=== PATIENT | female | born 1950 | race Caucasian/White ===

== ENCOUNTER 2017-01-23 14:59 | Inpatient (IN) | payer MEDICARE, OTHER ==
[~2017-01-23] VITALS: Ht 160 cm; Wt 70.4 kg
[2017-01-23 15:00] VITALS: BP 146/66; PULSE 68; RESP 18; TEMP 98.6; O2SAT 100
--- NOTE | 2017-01-23 16:51 | PD ---
HPI Chief Complaint: Psychiatric Symptoms Time Seen by Provider: 16:35 Travel History International Travel<30 days: No Contact w/Intl Traveler<30days: No Traveled to known affect area: No History of Present Illness HPI This is a 66-year-old female who presents voluntarily for psychiatric evaluation. Reportedly the patient has a recent diagnosis of frontotemporal dementia as well as depression. Her in November and since then she has been isolating herself. According to the nurse's spoke to the patient' s daughter she has been locking herself in her room and has had a decreased appetite, eating and drinking less than usual. She is currently seeing a psychiatrist but symptoms have been worsening which prompted evaluation today. Upon examination of the patient she is quite tearful when speaking of her , she reports that she misses him quite a bit and does endorse grieving. When asked about her social isolation and decreased appetite she says "that is their opinion." She denies any suicidal or homicidal ideation. She has no medical complaints at this time. [facility] Past Medical History Narrative Medical Frontotemporal dementia, depression Social History Alcohol Use: No Tobacco Use: No Allergies-Medications (Allergen,Severity, Reaction): Coded Allergies: Novocain (Verified Allergy, Severe, UNKNOWN, 01/23/17) Penicillin (Verified Allergy, Severe, UNKNOWN, 01/23/17) Review of Systems Except as stated in HPI: all other systems reviewed are Neg Physical Exam Narrative GENERAL: Well-developed well-nourished female in no acute distress. SKIN: Warm and dry. HEAD: Atraumatic. Normocephalic. EYES: Pupils equal and round. No scleral icterus. No injection or drainage. ENT: No nasal bleeding or discharge. Mucous membranes pink and moist. NECK: Trachea midline. No JVD. CARDIOVASCULAR: Regular rate and rhythm. No murmur appreciated. RESPIRATORY: No accessory muscle use. Clear to auscultation. Breath sounds equal bilaterally. GASTROINTESTINAL: Abdomen soft, non-tender, nondistended. Hepatic and splenic margins not palpable. MUSCULOSKELETAL: No obvious deformities. No edema. NEUROLOGICAL: Awake and alert. No obvious cranial nerve deficits. Motor grossly within normal limits. Normal speech. PSYCHIATRIC: Depressed mood, tearful. Insight is limited. Data Data Last Documented VS Vital Signs Date Time Temp Pulse Resp B/P Pulse Ox O2 Delivery O2 Flow Rate FiO2 7/4/17 15:00 98.6 68 18 146/66 100 Room Air Orders Complete Blood Count With Diff (01/23/17 16:30) Comprehensive Metabolic Panel (01/23/17 16:30) Urinalysis - C+S If Indicated (01/23/17 16:30) Psych Screen (01/23/17 16:30) Drug Screen, Random Urine (01/23/17 16:30) Alcohol (Ethanol) (01/23/17 16:30) Diet Regular Basic (01/23/17 Dinner) Labs Laboratory Tests Test 01/23/17 01/23/17 01/23/17 16:46 16:54 17:42 White Blood Count 7.7 TH/MM3 Red Blood Count 4.39 MIL/MM3 Hemoglobin 13.6 GM/DL Hematocrit 39.1 % Mean Corpuscular Volume 89.2 FL Mean Corpuscular Hemoglobin 31.1 PG Mean Corpuscular Hemoglobin 34.8 % Concent Red Cell Distribution Width 13.4 % Platelet Count 235 TH/MM3 Mean Platelet Volume 8.6 FL Neutrophils (%) (Auto) 56.2 % Lymphocytes (%) (Auto) 31.9 % Monocytes (%) (Auto) 9.9 % Eosinophils (%) (Auto) 1.3 % Basophils (%) (Auto) 0.7 % Neutrophils # (Auto) 4.3 TH/MM3 Lymphocytes # (Auto) 2.5 TH/MM3 Monocytes # (Auto) 0.8 TH/MM3 Eosinophils # (Auto) 0.1 TH/MM3 Basophils # (Auto) 0.1 TH/MM3 CBC Comment DIFF FINAL Differential Comment Sodium Level 138 MEQ/L Potassium Level 4.2 MEQ/L Chloride Level 100 MEQ/L Carbon Dioxide Level 32.3 MEQ/L Anion Gap 6 MEQ/L Blood Urea Nitrogen 16 MG/DL Creatinine 0.83 MG/DL Estimat Glomerular Filtration 69 ML/MIN Rate Random Glucose 90 MG/DL Calcium Level 9.9 MG/DL Total Bilirubin 0.6 MG/DL Aspartate Amino Transf 26 U/L (AST/SGOT) Alanine Aminotransferase 32 U/L (ALT/SGPT) Alkaline Phosphatase 80 U/L Total Protein 9.0 GM/DL Albumin 4.0 GM/DL Ethyl Alcohol Level LESS THAN 3 MG/DL Urine Color YELLOW Urine Turbidity CLEAR Urine pH 6.5 Urine Specific [place] 1.023 Urine Protein TRACE mg/dL Urine Glucose (UA) NEG mg/dL Urine Ketones NEG mg/dL Urine Occult Blood NEG Urine Nitrite NEG Urine Bilirubin NEG Urine Urobilinogen LESS THAN 2.0 MG/DL Urine Leukocyte Esterase SMALL Urine RBC 1 /hpf Urine WBC 6 /hpf Urine Squamous Epithelial <1 /hpf Cells Urine Mucus FEW /lpf Microscopic Urinalysis Comment CULT NOT INDICATED MDM Medical Decision Making Medical Screen Exam Complete: Yes Emergency Medical Condition: Yes Medical Record Reviewed: Yes Interpretation(s) CBC unremarkable CMP essentially unremarkable Alcohol level within normal limits Urinalysis reveals small leukocytes otherwise unremarkable Differential Diagnosis Grieving, adjustment reaction, dementia, major depressive disorder, depressive disorder not otherwise specified, acute psychosis Narrative Course 66-year-old female whose in November, has been grieving, recent diagnosis of depression and frontotemporal dementia, presents for evaluation of increased social isolation and decreased activities of daily living. Mental health screening discussed with the patient. Psychiatric screen ordered. The patient's lab work has been reviewed and found to be essentially unremarkable. She is medically cleared for psychiatric disposition. Diagnosis Primary Impression: Depression Qualified Code: F32.9 - Depression, unspecified depression type Gian Mann Jan 23, 2017 16:50
[2017-01-23 17:13] LABS: AUTOMATED NEUTROPHIL # 4.3 TH/MM3 (1.8-7.7); BASOPHIL # 0.1 TH/MM3 (0-0.2); BASOPHIL % 0.7 % (0.0-2.0); EOSINOPHIL # 0.1 TH/MM3 (0-0.4); EOSINOPHIL % 1.3 % (0.0-4.0); HEMATOCRIT 39.1 % (35.0-46.0); HEMO FLAGS DIFF FINAL; LYMPH % 31.9 % (9.0-44.0); LYMPHOCYTE # 2.5 TH/MM3 (1.0-4.8); MEAN CELL VOLUME 89.2 FL (80.0-100.0); MEAN CORPUSCULAR HEMOGLOBIN 31.1 PG (27.0-34.0); MEAN CORPUSCULAR HGB CONC 34.8 % (32.0-36.0); MONO % 9.9 % (0.0-8.0); NEUT % 56.2 % (16.0-70.0); PLATELET COUNT 235 TH/MM3 (150-450); RED BLOOD COUNT 4.39 MIL/MM3 (4.00-5.30); RED CELL DISTRIBUTION WIDTH 13.4 % (11.6-17.2); WHITE BLOOD COUNT 7.7 TH/MM3 (4.0-11.0)
[2017-01-23 17:33] LABS: ANION GAP 6 MEQ/L (5-15); AST (GOT) 26 U/L (15-37); BICARBONATE 32.3 MEQ/L (21.0-32.0); BLOOD UREA NITROGEN 16 MG/DL (7-18); CHLORIDE 100 MEQ/L (98-107); GLOMERULAR FILTRATION RATE 69 ML/MIN (>89); POTASSIUM 4.2 MEQ/L (3.5-5.1); SODIUM (NA) 138 MEQ/L (136-145)
[2017-01-23 17:37] LABS: ALKALINE PHOSPHATASE 80 U/L (45-117); ALT (GPT) 32 U/L (10-53); TOTAL BILIRUBIN ADULT 0.6 MG/DL (0.2-1.0)
[2017-01-23 18:17] LABS: BLOOD, URINE NEG (NEG); COMMENT (UR) CULT NOT INDICATED; CULTURE IF INDICATED CULT NOT INDICATED; GLUCOSE,URINE NEG (NEG); KETONE, URINE NEG (NEG); MUCUS URINE FEW /lpf (OCC); NITRITE,URINE NEG (NEG); PH, URINE 6.5 (5.0-8.5); SQUAMOUS EPITHELIAL CELL URINE <1 /hpf (0-5); URINE COLOR YELLOW (YELLW/STRAW)
[2017-01-23 18:18] LABS: AMPHETAMINE, URINE NEG (NEG); BARBITURATES, URINE NEG (NEG); COCAINE, URINE NEG (NEG)
[2017-01-23 18:44] VITALS: BP 135/73; PULSE 58; RESP 16; O2SAT 100
[2017-01-23] MEDS ORDERED: NAME10TA PO (21:44)
[2017-01-23] MEDS ORDERED: CELE10TA PO (21:44)
[2017-01-23] MEDS ORDERED: HYDR50TA3 PO (21:44)
[2017-01-23] MEDS ORDERED: ATOR40TA16 PO (21:44)
[2017-01-23] MEDS ORDERED: NAME5TAB2 PO (21:44)
[2017-01-23] MEDS ORDERED: LISI-519 PO (21:44)
[2017-01-23 22:11] VITALS: BP 107/59; PULSE 50; RESP 17; TEMP 98.2; O2SAT 98
[2017-01-23] MEDS ORDERED: LORazepam 0.5 MG TAB age > 65 yrs PO PRN (23:30)
[2017-01-23] MEDS ORDERED: LORazepam 2 MG/ML VIAL - age > 65 yrs IM PRN (23:30)
[2017-01-23] MEDS ORDERED: diphenhydrAMINE HCL 50 MG CAP PO PRN (23:30)
[2017-01-23] MEDS ORDERED: diphenhydrAMINE HCL 50 MG/ML VIAL - HS PRN IM (23:30)
[2017-01-23] MEDS ORDERED: ACETAMINOPHEN 325 MG TAB PO PRN (23:30)
[2017-01-23] MEDS ORDERED: diphenhydrAMINE HCL 50 MG/ML VIAL IM PRN (23:30)
[2017-01-23] MEDS ORDERED: MAGNESIUM HYDROXIDE SUSP 30 ML CUP PO PRN (23:30)
[2017-01-23] MEDS ORDERED: ALUMINUM/MAGNESIUM/SIMETH 30 ML CUP PO PRN (23:30)
[2017-01-24] VITALS: BP 128/60; PULSE 52; RESP 18; TEMP 97.7; O2SAT 100
[2017-01-24 04:56] VITALS: BP 96/53; PULSE 53; RESP 16; TEMP 97.4; O2SAT 98
[2017-01-24] MEDS: HYDROCHLOROTHIAZIDE 50 MG TAB PO SCH (09:00)
[2017-01-24] MEDS: LISINOPRIL 5 MG TAB PO SCH (09:00)
[2017-01-24] MEDS: NICOTINE 21 MG/24 HR PATCH T-DERMAL SCH (09:00)
[2017-01-24 10:25] LABS: AUTOMATED NEUTROPHIL # 2.9 TH/MM3 (1.8-7.7); BASOPHIL % 0.7 % (0.0-2.0); EOSINOPHIL # 0.1 TH/MM3 (0-0.4); EOSINOPHIL % 2.3 % (0.0-4.0); HEMATOCRIT 39.8 % (35.0-46.0); HEMO FLAGS DIFF FINAL; LYMPH % 36.1 % (9.0-44.0); MEAN CELL VOLUME 90.3 FL (80.0-100.0); MEAN CORPUSCULAR HEMOGLOBIN 30.4 PG (27.0-34.0); MEAN CORPUSCULAR HGB CONC 33.7 % (32.0-36.0); MONO % 9.4 % (0.0-8.0); NEUT % 51.5 % (16.0-70.0); PLATELET COUNT 240 TH/MM3 (150-450); RED BLOOD COUNT 4.41 MIL/MM3 (4.00-5.30); RED CELL DISTRIBUTION WIDTH 13.4 % (11.6-17.2); WHITE BLOOD COUNT 5.6 TH/MM3 (4.0-11.0)
[2017-01-24 10:43] LABS: ANION GAP 8 MEQ/L (5-15); BICARBONATE 29.7 MEQ/L (21.0-32.0); BLOOD UREA NITROGEN 12 MG/DL (7-18); CHLORIDE 99 MEQ/L (98-107); GLOMERULAR FILTRATION RATE 90 ML/MIN (>89); POTASSIUM 3.8 MEQ/L (3.5-5.1); SODIUM (NA) 137 MEQ/L (136-145)
[2017-01-24 10:46] LABS: HDL CHOLESTEROL 60.1 MG/DL (40.0-60.0); LDL CHOLESTEROL 106 MG/DL (0-99)
--- NOTE | 2017-01-24 11:34 | HHI.HP ---
Provisional Diagnosis Admission Date Jan 23, 2017 at 23:11 [place]. Dementia with behavioral disturbance Certification of Person's Competence To Provide Express and Informed Consent I have personally examined Magnolia Camacho , a person being served at [facility] on, Jan 24, 2017 11:25. Express and informed consent means consent voluntarily given in writing, by a competent person, after sufficient explanation and disclosure of the subject matter involved to enable the person to make a knowing and willful decision without any element of force, fraud, deceit, duress, or other form of constraint or coercion. This person is 18 years of age or older, is not now known to be incompetent to consent to treatment with a guardian advocate, and does not have a health care surrogate or proxy currently making medical treatment decisions. I have found this person to be one of the following: [x] Competent to provide express and informed consent, as defined above, for voluntary admission to this facility and is competent to provide express and informed consent for treatment. He/she has the consistent capacity to make well reasoned, willful, and knowing decisions concerning his or her medical or mental health treatment. The person fully and consistently understands the purpose of the admission for examination/placement and is fully capable of personally exercising all rights assured under [place] Incompetent to provide express and informed consent to voluntary admission, and this is incompetent to provide express and informed consent to treatment. The person must be transferred to involuntary status and a petition for a guardian advocate filed with the Circuit Court. [] Refusing to provide express and informed consent to voluntary admission but is competent to provide express and informed consent for treatment. The person must be discharged or transferred to involuntary status. Form shall be completed within 24 hours of a person's arrival at the receiving facility and filed in the clinical record of each person: 1. Admitted on a voluntary basis 2. Permitted to provide express and informed consent to his/her own treatment 3. Allowed to transfer from involuntary to voluntary status 4. Prior to permitting a person to consent to his or her own treatment after having been previously found incompetent to consent to treatment. History of Present Illness Capacity: Has Capacity HPI 66-year-old female reportedly admitted for failure to care for self, not eating , not drinking, locking herself in her room, etc. Patient reportedly lost her in November of this year. Since that time she has been grieving his loss and experiencing symptoms of depressed mood, anhedonia, diminished energy, decreased motivation, feelings of hopelessness and helplessness, social withdrawal, decreased concentration and memory, insomnia and loss of appetite. She has been reportedly not suicidal or homicidal or psychotic. 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 She does not drink alcohol or use illicit drugs. She has been seen by a physician at [facility] and her antidepressants were changed. Prior to that she was being treated by her family physician. Review of Systems Except as stated in HPI: all other systems reviewed are Neg Past Psych History Psychological trauma history Denied for trauma or inpatient psychiatric hospitalization. Chronic depression. Violence risk - others (6 mos) Minimal Violence risk - self (6 mos) Moderate Substance Abuse History Drugs/Alcohol past 12 months Denied Past Family Social History Coded Allergies: Novocain (Verified Allergy, Severe, UNKNOWN, 01/23/17) Penicillin (Verified Allergy, Severe, UNKNOWN, 01/23/17) Reported Medications Citalopram (Celexa)10 Mg Tab10 Mg PO DAILY #30 TAB Ref 0 01/23/17 Atorvastatin 40 Mg Tab40 Mg PO HS #30 TAB Ref 0 01/23/17 Hydrochlorothiazide 50 Mg Tab50 Mg PO DAILY #60 TAB Ref 0 01/23/17 Lisinopril 5 Mg Tab5 Mg PO DAILY #30 TAB Ref 0 01/23/17 Memantine (Namenda)10 Mg Tab10 Mg PO DAILY #30 TAB Ref 0 01/23/17 Memantine (Namenda)5 Mg Tab5 Mg PO DAILY 14 Days Ref 1 01/23/17 Current Medications Medications (Trade) Dose Ordered Sig/Bucky Route Start Time Stop Time Status Last Admin (Ativan) 0.5 mg Q12H PRN PO 01/23/17 23:30 (Ativan Inj) 0.5 mg Q12H PRN IM 01/23/17 23:30 (Atarax) 50 mg Q6H PRN PO 01/23/17 23:30 (Benadryl) 50 mg Q6H PRN PO 01/23/17 23:30 (Benadryl Inj) 50 mg Q6H PRN IM 01/23/17 23:30 (Benadryl) 50 mg HS PRN PO 01/23/17 23:30 (Benadryl Inj) 50 mg HS PRN IM 01/23/17 23:30 (Desyrel) 50 mg HS PRN PO 01/23/17 23:30 (Tylenol) 650 mg Q4H PRN PO 01/23/17 23:30 (Milk Of Magnesia Liq) 30 ml DAILY PRN PO 01/23/17 23:30 (Mag-Al Plus Susp Liq) 30 ml Q6H PRN PO 01/23/17 23:30 (Habitrol 21 Mg Patch.24 Hr) 1 patch DAILY T-DERMAL 01/24/17 09:00 Miscellaneous Information 1 HS T-DERMAL 01/24/17 21:00 (Lipitor) 40 mg HS PO 01/24/17 21:00 (Prinivil) 5 mg DAILY PO 01/24/17 09:00 (Hydrodiuril) 50 mg DAILY PO 01/24/17 09:00 Family History Positive for anxiety and mood disorders. Social History Retired. Lost 2 months ago. Does not drink or smoke. Does not use drugs. Has a supportive daughter. Patient's Strengths (min. 2) Verbal and has access to healthcare. Physical Exam GENERAL: SKIN: Warm and dry. HEAD: Normocephalic. EYES: No scleral icterus. No injection or drainage. NECK: Supple, trachea midline. No JVD or lymphadenopathy. CARDIOVASCULAR: Regular rate and rhythm without murmurs, gallops, or rubs. RESPIRATORY: Breath sounds equal bilaterally. No accessory muscle use. GASTROINTESTINAL: Abdomen soft, non-tender, nondistended. MUSCULOSKELETAL: No cyanosis, or edema. BACK: Nontender without obvious deformity. No CVA tenderness. Vital Signs Vital Signs Date Time Temp Pulse Resp B/P Pulse Ox O2 Delivery O2 Flow Rate FiO2 01/24/17 04:56 97.4 53 16 96/53 98 01/23/17 22:11 Room Air I/O 01/23/17 01/23/17 01/24/17 08:00 16:00 00:00 Output Total 300 ml Balance -300 ml Mental Status Examination Speech: Unremarkable Orientation: x3 Memory: Impaired (describe) Thought Process: Organized, Goal Directed Thought Content: Unremarkable Hallucination Type: None Attention and Concentration: Easily Distracted Suicidal Ideation: No Previous Suicide Attempts: No Homicidal Ideation: No Previous Homicide Attempts: No Insight: Fair Judgment: Unrealistic Affect: Irritable Mood: Irritable Motor Activity: Normal gait Assessment & Plan Problem List: (1) Dementia in other diseases classified elsewhere with behavioral disturbance ICD Code: F02.81 Assessment & Plan Estimated LOS: days 66-year-old female who has been previously diagnosed with frontal temporal dementia. Patient apparently not caring for herself since her 2 months ago. She is not eating or drinking or doing activities of daily living. This physician has several concerns including normal grief process, dementia process and possible major depressive disorder. At this time, it would be normal for the patient to grieve the loss of her thereby demonstrating seclusiveness. If the diagnosis of dementia is correct, it is also not surprising that she is not terribly active for social. Therefore, her dementia and depression will be evaluated. Patient will remain on and I depressive medication and Namenda for dementia. We will evaluate her for a vitamin the 12th and vitamin D deficiency, both of which can contribute to the dementia process. She will also receive a CBC and comprehensive metabolic panel to ascertain if there is an infectious process or metabolic issue that is causing her to be withdrawn and not care for herself. Her thyroid hormone will also be checked to determine if this is contributing to her memory problems. We will obtain an EKG to ensure that antidepressant medicines being prescribed do not interfere with a conduction system of her heart. Finally, this physician spoke to the patient's nurse regarding her recent behavior. We will obtain case fitter/manager social responsibility consult to help gather more information and provide disposition planning. Romaine Starr MD Jan 24, 2017 11:34
[2017-01-24 12:47] LABS: HEMOGLOBIN A1a 1.1 %; HEMOGLOBIN A1b 0.7 %; HEMOGLOBIN Ao 85.6 %; HEMOGLOBIN LA1C 2.1 %; HEMOGLOBIN P3 3.6 %
[2017-01-24 18:00] VITALS: BP 100/55; PULSE 62; RESP 18; TEMP 97.9; O2SAT 98
[2017-01-24] MEDS: REMOVE OLD NICOTINE PATCH T-DERMAL SCH (21:00)
[2017-01-24] MEDS: ATORVASTATIN 40 MG TAB PO SCH (22:02)
[2017-01-25 06:27] VITALS: BP 126/60; PULSE 53; RESP 53; TEMP 98; O2SAT 99
[2017-01-25] MEDS: NICOTINE 21 MG/24 HR PATCH T-DERMAL SCH (09:00)
[2017-01-25 09:03] VITALS: PULSE 60; RESP 16
[2017-01-25] MEDS: HYDROCHLOROTHIAZIDE 50 MG TAB PO SCH (09:05)
[2017-01-25] MEDS: LISINOPRIL 5 MG TAB PO SCH (09:06)
--- NOTE | 2017-01-25 13:52 | HHI.PYPN ---
Subjective Remarks Patient seen and examined with nurse. Chart reviewed. Case discussed with nursing staff. On my examination today, the patient presents as somewhat seclusive and withdrawn. She is intermittently tearful throughout the interview and says that she has been feeling more depressed since the passing of her , although she cannot recall exactly how long ago that was. She admits to low mood and some concentration difficulty but says that sleep and appetite are fair. She does endorse a history of depression and says that she has been on several different antidepressants in the past. It appears that she was on Celexa 10 mg daily prior to admission according to the medication reconciliation form. Denies any audiovisual hallucinations. Denies any suicidal ideation. No physical complaints. I did, with the patient's permission, endeavor to reach out to her daughter, Christin. I left a voicemail requesting a call back. Review of Systems Except as stated in HPI: all other systems reviewed are Neg Objective Alert: Yes [place]: Person, Place, Date (January,) Mood: Depressed Affect: Restricted Memory Intact: Comment (not formally assessed) Hallucinations: Other (no AVH) Delusions: No Delusion Type: Other (no delusions) Suicidal: Ideation (denies suicidal ideation) Homicidal: Ideation (no HI) Insight/Judgment Unclear Remarks No motor abnormalities noted although the patient is a little bit psychomotor slowed. Thought process somewhat slowed and focus/concentration do seem mildly impaired. Grooming and hygiene fair. Labs Labs reviewed. Vitals/IOs Vital Signs Date Time Temp Pulse Resp B/P Pulse Ox O2 Delivery O2 Flow Rate FiO2 01/25/17 09:03 60 16 01/25/17 06:27 98.0 126/60 99 01/23/17 22:11 Room Air Assessment & Plan Problem List: (1) Dementia in other diseases classified elsewhere with behavioral disturbance ICD Code: F02.81 (2) Depression ICD Code: F32.9 Assessment & Plan Degree of cognitive impairment presently unclear, but I will continue this diagnosis for now as it was originally applied by Dr. Starr. I will also add a depressive disorder diagnosis. I will titrate the patient's Celexa to 20 mg daily to target low mood. I will order the TSH, vitamin D and vitamin B12 level. PT eval. Fall precautions. Transfer to 2600 unit for improved socialization when a bed is available. Continue other medications and care as ordered. Justification for Cont. Inpt. Medication changes in process. Monitoring for impairments in self-care and safety. Risk for decompensation in less restrictive environment. Discharge Planning Pending stabilization Request HC Surrog/Guard Advoc?: No Problem Qualifiers (1) Depression: Qualified Code: F32.9 - Depression, unspecified depression type William Jenkins MD Jan 25, 2017 13:51
[2017-01-25] MEDS: REMOVE OLD NICOTINE PATCH T-DERMAL SCH (21:00)
[2017-01-25] MEDS: hydrOXYzine HCL 50 MG TAB PO PRN (21:08)
[2017-01-25] MEDS: traZODone HCL 50 MG TAB PO PRN (21:08)
[2017-01-25] MEDS: ATORVASTATIN 40 MG TAB PO SCH (21:08)
[2017-01-26 06:49] VITALS: BP 105/55; PULSE 46; RESP 16; TEMP 97.6; O2SAT 99
[2017-01-26] MEDS: CITALOPRAM HYDROBROMIDE 20 MG TAB PO SCH (08:24)
[2017-01-26] MEDS: HYDROCHLOROTHIAZIDE 50 MG TAB PO SCH (08:31)
[2017-01-26] MEDS: NICOTINE 21 MG/24 HR PATCH T-DERMAL SCH (08:32)
[2017-01-26] MEDS: LISINOPRIL 5 MG TAB PO SCH (08:32)
--- NOTE | 2017-01-26 13:11 | HHI.PYPN ---
Subjective Remarks Patient seen and examined with nurse. Chart reviewed. Patient is eating and sleeping well. Participation in unit activities is limited. Case discussed with nursing staff reports the patient has exhibited no problematic behavior on the unit. On my examination today, the patient is calm and cooperative with examination. She describes her mood as "a little sad" and says that this is because "I don't see anyone I know." She is somewhat tearful at intervals but denies any suicidal or homicidal ideation. She denies any audiovisual hallucinations. Denies side effects from medications. No physical complaints. Review of Systems ROS Limitations: Poor Historian Except as stated in HPI: all other systems reviewed are Neg Objective Alert: Yes [place]: Person, Place, Date Mood: Other (a little sad) Affect: Restricted Memory Intact: Comment (not formally assessed) Hallucinations: Other (denies AVH) Delusions: No Delusion Type: Other (no delusional material elicited) Suicidal: Ideation (denies SI) Homicidal: Ideation (denies HI) Insight/Judgment Remains unclear Remarks No motor abnormalities noted. Thought process perhaps a little slowed but generally linear. Grooming and hygiene fair. Labs Labs reviewed. TSH, B12 and vitamin D all unremarkable. Vitals/IOs Vital Signs Date Time Temp Pulse Resp B/P Pulse Ox O2 Delivery O2 Flow Rate FiO2 01/26/17 06:49 97.6 46 16 105/55 99 01/23/17 22:11 Room Air Intake and Output 01/25/17 01/25/17 01/26/17 08:00 16:00 00:00 Intake Total 440 ml Balance 440 ml Assessment & Plan Problem List: (1) Dementia in other diseases classified elsewhere with behavioral disturbance ICD Code: F02.81 (2) Depression ICD Code: F32.9 Assessment & Plan Continue Celexa as ordered. Continue to monitor on the inpatient unit. I have encouraged participation in groups and unit activities. Continue other medications and care as ordered. Justification for Cont. Inpt. Risk for decompensation Discharge Planning Pending outcome of observation. Case d/w counselor; home situation perhaps somewhat complex. Request HC Surrog/Guard Advoc?: No Problem Qualifiers (1) Depression: Qualified Code: F32.9 - Depression, unspecified depression type William Jenkins MD Jan 26, 2017 13:11
[2017-01-26 17:43] VITALS: BP 145/65; PULSE 68; RESP 16; TEMP 98.6; O2SAT 98
[2017-01-26] MEDS: REMOVE OLD NICOTINE PATCH T-DERMAL SCH (21:00)
[2017-01-26] MEDS: traZODone HCL 50 MG TAB PO PRN (21:11)
[2017-01-26] MEDS: ATORVASTATIN 40 MG TAB PO SCH (21:11)
[2017-01-26] MEDS: hydrOXYzine HCL 50 MG TAB PO PRN (21:11)
[2017-01-27 06:55] VITALS: BP 100/50; PULSE 60; RESP 16; TEMP 98.9; O2SAT 97
[2017-01-27] MEDS: HYDROCHLOROTHIAZIDE 50 MG TAB PO SCH (09:00)
[2017-01-27] MEDS: LISINOPRIL 5 MG TAB PO SCH (09:00)
[2017-01-27] MEDS: NICOTINE 21 MG/24 HR PATCH T-DERMAL SCH (09:00)
[2017-01-27] MEDS: CITALOPRAM HYDROBROMIDE 20 MG TAB PO SCH (09:16)
--- NOTE | 2017-01-27 16:01 | HHI.PYPN ---
Subjective Remarks Pt seen and discussed with staff. She has been compliant with care and treatment. No behavioral problems on the unit. No SI/HI. Objective Alert: Yes [place]: Person, Place, Date Mood: Other (a little sad) Affect: Restricted Memory Intact: Comment (impaired) Hallucinations: Other (denies AVH) Delusions: No Delusion Type: Other (no delusional material elicited) Suicidal: Ideation (denies SI) Homicidal: Ideation (denies HI) Insight/Judgment limited Vitals/IOs Vital Signs Date Time Temp Pulse Resp B/P Pulse Ox O2 Delivery O2 Flow Rate FiO2 01/27/17 06:55 98.9 60 16 100/50 97 01/23/17 22:11 Room Air Intake and Output 01/26/17 01/26/17 01/27/17 08:00 16:00 00:00 Intake Total 240 ml Balance 240 ml Assessment & Plan Problem List: (1) Dementia in other diseases classified elsewhere with behavioral disturbance ICD Code: F02.81 (2) Depression ICD Code: F32.9 Assessment & Plan Continue current tx plan Estimated LOS: days Justification for Cont. Inpt. risk of decompensation Request HC Surrog/Guard Advoc?: No Problem Qualifiers (1) Depression: Qualified Code: F32.9 - Depression, unspecified depression type Linda Daley MD Jan 27, 2017 16:01
[2017-01-27 18:00] VITALS: BP 128/73; PULSE 74; RESP 16; TEMP 99; O2SAT 98
[2017-01-27] MEDS: REMOVE OLD NICOTINE PATCH T-DERMAL SCH (21:00)
[2017-01-27] MEDS: hydrOXYzine HCL 50 MG TAB PO PRN (21:30)
[2017-01-27] MEDS: ATORVASTATIN 40 MG TAB PO SCH (21:30)
[2017-01-27] MEDS: diphenhydrAMINE HCL 50 MG CAP - HS PRN PO (21:30)
[2017-01-28 06:48] VITALS: BP 117/58; PULSE 65; RESP 18; TEMP 99.5; O2SAT 96
[2017-01-28] MEDS: LISINOPRIL 5 MG TAB PO SCH (09:00)
[2017-01-28] MEDS: CITALOPRAM HYDROBROMIDE 20 MG TAB PO SCH (09:00)
[2017-01-28] MEDS: NICOTINE 21 MG/24 HR PATCH T-DERMAL SCH (09:01)
[2017-01-28] MEDS: HYDROCHLOROTHIAZIDE 50 MG TAB PO SCH (09:02)
--- NOTE | 2017-01-28 16:40 | HHI.PYPN ---
Subjective Remarks Pt seen and discussed with staff. She slept well last night. She is upset with her daughter and blames daughter for admission, but did have a good visit with her today. She has had some mood lability today but no behavioral problems on unit. No SI/HI Objective Alert: Yes [place]: Person, Place, Date Mood: Calm Affect: Restricted Memory Intact: Comment (impaired) Hallucinations: Other (denies AVH) Delusions: No Delusion Type: Other (no delusional material elicited) Suicidal: Ideation (denies SI) Homicidal: Ideation (denies HI) Insight/Judgment poor Vitals/IOs Vital Signs Date Time Temp Pulse Resp B/P Pulse Ox O2 Delivery O2 Flow Rate FiO2 01/28/17 06:48 99.5 65 18 117/58 96 Assessment & Plan Problem List: (1) Dementia in other diseases classified elsewhere with behavioral disturbance ICD Code: F02.81 (2) Depression ICD Code: F32.9 Assessment & Plan Continue current tx plan. Estimated LOS: days Justification for Cont. Inpt. risk of decompensation Request HC Surrog/Guard Advoc?: No Problem Qualifiers (1) Depression: Qualified Code: F32.9 - Depression, unspecified depression type Linda Daley MD Jan 28, 2017 16:40
[2017-01-28 17:57] VITALS: BP 160/70; PULSE 58; RESP 18; TEMP 99.1; O2SAT 99
[2017-01-28] MEDS: REMOVE OLD NICOTINE PATCH T-DERMAL SCH (21:00)
[2017-01-28] MEDS: diphenhydrAMINE HCL 50 MG CAP - HS PRN PO (21:43)
[2017-01-28] MEDS: ATORVASTATIN 40 MG TAB PO SCH (21:44)
[2017-01-29 05:36] VITALS: BP 121/58; PULSE 51; RESP 19; TEMP 97.8
[2017-01-29] MEDS: CITALOPRAM HYDROBROMIDE 20 MG TAB PO SCH (09:00)
[2017-01-29] MEDS: HYDROCHLOROTHIAZIDE 50 MG TAB PO SCH (09:00)
[2017-01-29] MEDS: NICOTINE 21 MG/24 HR PATCH T-DERMAL SCH (09:00)
[2017-01-29] MEDS: LISINOPRIL 5 MG TAB PO SCH (09:00)
[2017-01-29] MEDS ORDERED: CELE20TA PO (12:13)
--- NOTE | 2017-01-29 12:13 | HHI.DS ---
Psychiatry Discharge Summary Inpatient Psychiatric care?: Yes Advance Directive: No Reason Not Provided: has none Mental Health AdvanceDirective: No Health Care Proxy: No Admission Admission Date Jan 23, 2017 at 23:11 Admission Diagnosis: (1) Dementia in other diseases classified elsewhere with behavioral disturbance ICD Code: F02.81 Brief History 66-year-old female reportedly admitted for failure to care for self, not eating , not drinking, locking herself in her room, etc. Patient reportedly lost her in November of this year. Since that time she has been grieving his loss and experiencing symptoms of depressed mood, anhedonia, diminished energy, decreased motivation, feelings of hopelessness and helplessness, social withdrawal, decreased concentration and memory, insomnia and loss of appetite. She has been reportedly not suicidal or homicidal or psychotic. 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 She does not drink alcohol or use illicit drugs. She has been seen by a physician at [facility] and her antidepressants were changed. Prior to that she was being treated by her family physician. Tobacco Use In Past 30 Days: No Tobacco Past 30 Days Alcohol Use: Monthly or Less Hospital Course Patient was admitted to a locked, inpatient psychiatric unit. Appropriate precautions were in place throughout patient's hospital stay. Patient was seen and examined daily on the unit by psychiatry and also visited by counselor. Psychotropic medications were adjusted. Patient tolerated medication changes well without side effects. Patient had improvement in presenting psychiatric symptomatology during the course of her hospital stay. There was no evidence of any suicidality or homicidality on the inpatient unit. Charting indicates that the patient has been sleeping and eating well. On the day of discharge: Patient seen and examined with nurse. Chart reviewed. Case discussed with nursing staff reports that the patient has not been any behavioral problem and has been attending to her ADLs on the unit. Case discussed with counselor who has been in contact with patient's daughter and reports the patient's daughter is comfortable accepting the patient home today. On my examination today, the patient is in good spirits. She is laughing and smiling appropriately. Mood is reportedly good, and I can elicit no ongoing depressive or hypomanic/manic symptoms. She denies any suicidal or homicidal ideation, intent or plan on direct questioning. She denies any audiovisual hallucinations, and I can elicit no delusional beliefs. She is reportedly sleeping and eating well. She denies any side effects from medications. She has no physical complaints. Weighing the acute, chronic, and protective factors and based on the available evidence, I mail censor to a reasonable degree of medical certainty that the patient is at low imminent risk of harm to self or others from a mental illness and her level of function is adequate for outpatient care. The patient has maximized benefit from this inpatient psychiatric hospital stay and will be discharged today with psychiatric follow-up as arranged by counselor. Patient is also to follow-up with primary care. I have counseled the patient regarding warning signs for need to return to the psychiatric emergency room as part of a general safety plan. Results Blood Pressure 121 / 58 Vital Signs Date Time Temp Pulse Resp B/P Pulse Ox O2 Delivery O2 Flow Rate FiO2 01/29/17 05:36 97.8 51 19 121/58 01/28/17 17:57 99 Item Value Date Time White Blood Count 5.6 TH/MM3 01/24/17 0832 Hemoglobin 13.4 GM/DL 01/24/17 0832 Platelet Count 240 TH/MM3 01/24/17 0832 Sodium Level 137 MEQ/L 01/24/17 0832 Potassium Level 3.8 MEQ/L 01/24/17 0832 Chloride Level 99 MEQ/L 01/24/17 0832 Carbon Dioxide Level 29.7 MEQ/L 01/24/17 0832 Blood Urea Nitrogen 12 MG/DL 01/24/17 0832 Creatinine 0.66 MG/DL 01/24/17 0832 Estimat Glomerular Filtration Rate 90 ML/MIN 01/24/17 0832 Hemoglobin A1c 5.3 % 01/24/17 0832 Aspartate Amino Transf (AST/SGOT) 26 U/L 01/23/17 1654 Alanine Aminotransferase (ALT/SGPT) 32 U/L 01/23/17 1654 Alkaline Phosphatase 80 U/L 01/23/17 1654 Vitamin B12 Level 417 PG/ML 01/24/17 0832 25-Hydroxy Vitamin D Total 31.3 ng/ML 01/24/17 0832 Thyroid Stimulating Hormone 3rd Gen 2.260 uIU/ML 01/24/17 0832 Urine Opiates Screen NEG 01/23/17 1742 Urine Barbiturates Screen NEG 01/23/17 1742 Urine Amphetamines Screen NEG 01/23/17 1742 Urine Benzodiazepines Screen NEG 01/23/17 1742 Urine Cocaine Screen NEG 01/23/17 1742 Urine Cannabinoids Screen NEG 01/23/17 1742 Ethyl Alcohol Level LESS THAN 3 MG/DL 01/23/17 1654 Summary of Procedures None done Imaging None done Pending results at discharge: No Medications # of Antipsychotic meds at D/C: 0 Approp Antipsych med options 1 - Minimum of three failed multiple trials of monotherapy. 2 - Documented plan to taper to monotherapy due to previous use of multiple meds OR cross-taper in progress at D/C. 3 - Documentation of augmentation of Clozapine. 4 - Justification other than those listed in allowable values 1-3, document here : Discharge Discharge Date: Jan 29, 2017 Discharge Diagnosis: (1) Depression Diagnosis: Principal (resolved) ICD Code: F32.9 (2) Major neurocognitive disorder Diagnosis: Secondary (stable, chronic) ICD Code: F03.90 GAF on discharge is 55. Mental Status Exam at Disch Patient is in hospital gown. She is well groomed. She is awake and alert and oriented to person and hospital at least. No evidence of delirium. No motor abnormalities noted. Speech is within normal limits for rate, tone and volume. Language and fund of knowledge seem mildly reduced for age. Focus and concentration intact. Memory mildly impaired on clinical exam. Mood is good. Affect full and reactive. Thought process linear. No loosening of associations. No delusional material elicited. Denies any audiovisual hallucinations. Denies suicidal or homicidal ideation, intent or plan. Insight and judgment are fair. Pt Condition on Discharge: Stable Discharge Disposition: Discharge Home Discharge Instructions Diet Instructions: As Tolerated, No Restrictions Activities you can perform: Weight Bearing as Katerina Scheduled Appointment: as per counselor's notes New Medications: Citalopram (Celexa) 20 Mg Tab 20 MG PO DAILY Mental Health Days 15 Ref 1 TAB Continued Medications: Atorvastatin (Atorvastatin) 40 Mg Tab 40 MG PO HS Cholesterol Management #30 Ref 0 TAB Hydrochlorothiazide (Hydrochlorothiazide) 50 Mg Tab 50 MG PO DAILY #60 Ref 0 TAB Lisinopril (Lisinopril) 5 Mg Tab 5 MG PO DAILY Blood Pressure Management #30 Ref 0 TAB Discontinued Medications: Citalopram (Celexa) 10 Mg Tab 10 MG PO DAILY Control Depression #30 Ref 0 TAB Memantine (Namenda) 5 Mg Tab 5 MG PO DAILY Days 14 Ref 1 TAB Memantine (Namenda) 10 Mg Tab 10 MG PO DAILY Alzheimer Disease #30 Ref 0 TAB Discharge Time <= 30 minutes Discharge/Advance Care Plan Health Problems: (1) Dementia in other diseases classified elsewhere with behavioral disturbance (2) Depression Goals to promote your health * To prevent worsening of your condition and complications * To maintain your health at the optimal level Directions to meet your goals Take your medications as prescribed Follow your dietary instruction Follow activity as directed Keep your appointments as scheduled Take your immunizations and boosters as scheduled If your symptoms worsen call your PCP, if no PCP go to Urgent Care Center or Emergency Room For 12/02 questions related to your inpatient stay or results of tests pending at discharge, please contact Dr. William Jenkins at Smoking is Dangerous to Your Health. Avoid second hand smoking Problem Qualifiers (1) Depression: Qualified Code: F32.9 - Depression, unspecified depression type William Jenkins MD Jan 29, 2017 12:13
== END 2017-01-29 15:10 | disposition home or self-care (01) | DRG 881 ==
LOC: NEPJ 14:59 → NEDA 23:11 → H250 23:54 → H260 01-25 18:14
PROVIDERS: ADMIT Psychiatry & Neurology Psychiatry; ATTEND Psychiatry & Neurology Psychiatry
DX: F32.9 Major depressive disorder, single episode, unspecified (principal); F03.90 Unspecified dementia, unspecified severity, without behavioral disturbance, psychotic disturbance, mood disturbance, and anxiety
CPT/HCPCS: 80048; 80053; 80061; 80307; 81001; 82306; 82607; 83036; 84443; 85025; Q0163